=== PATIENT | female | born 1980 | race American Indian/Alaskan Native ===

== ENCOUNTER 2018-05-24 06:01 | Emergency (ER) | payer OTHER ==
--- NOTE | 2018-05-24 07:45 | Emergency Department Report ---
ED Rash HPI - HPI Chief Complaint: Extremity Injury, Upper Stated Complaint: RASH Time Seen by Provider: 05/24/18 06:24 Duration: at least 1 week of illness Location: Neck, Back, Upper Extremities Suspected Cause: Unknown Rash Symptoms: Yes Itching, Yes Malaise, No Facial Swelling, No Tongue/Oral Swelling, No Breathing Difficulties, No Choking Sensation, No Wheezing/Dyspnea, No Peeling, No Blistering, No Fever, No Lightheaded, No Myalgias Severity: mild Other History: Ms. Mosqueda is a pleasant 37 yo female with hx of HTN who presents with rash on left arm, upper neck, right shoulder and buttock region. She has had two course of antibiotics for infected mosquito bite and upper respiratory infection. Currently taking Augmentin. Mild pain with itching at the left arm predominately with 2 small blisters. She also had 2 areas of swelling posterior neck which have resolved. 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 S he has a PCP in her hometown [place], [place] ED Review of Systems ROS: Stated complaint: RASH Other details as noted in HPI Constitutional: malaise. denies: fever Skin: rash, lesions ED Past Medical Hx - Past Medical History Previous Medical History?: Yes Hx Hypertension: Yes - Surgical History Past Surgical History?: No - Social History Smoking Status: Never Smoker Substance Use Type: None - Medications Home Medications: Home Medications Medication Instructions Recorded Confirmed Last Taken Type Sulfamethoxazole/Trimethoprim 1 each PO BID 7 Days #14 tablet 05/24/18 Unknown Rx [Bactrim DS TAB] Rash Exam - Exam General: Vital signs noted. No distress. Alert and acting appropriately. HEENT: No Periorbital Edema, No Conjuctival Injection, No Chemosis, No Perioral Edema, No Tongue Edema, No Uvular Edema, No Compromised Airway, No Drooling Lungs: No Labored Respirations, No Use of Accessory Muscles Skin: Yes Erythema (left forearm edema with 2 small blisters) ED Course Vital Signs 05/24/18 06:13 Temperature 98.3 F Pulse Rate 104 H Respiratory 18 Rate Blood Pressure 147/97 O2 Sat by Pulse 100 Oximetry ED Medical Decision Making - Medical Decision Making left forearm rash with reported "welts" on right shoulder and back which have resolved. I suspect MRSA infection. I do not suspect drug reaction although it is possible. Rx: bactrim, given return precautions She will stop Augmentin Critical care attestation.: If time is entered above; I have spent that time in minutes in the direct care of this critically ill patient, excluding procedure time. ED Disposition Clinical Impression: Cellulitis Disposition: [id number] TO HOME OR SELFCARE Is pt being admited?: No Does the pt Need Aspirin: No Condition: Stable Instructions: Cellulitis (ED) Prescriptions: Sulfamethoxazole/Trimethoprim [Bactrim DS TAB] 1 each PO BID 7 Days #14 tablet Referrals: PRIMARY CARE, [Primary Care Provider] - [facility]
[2018-05-24 08:02] VITALS: BP 124/70
== END 2018-05-24 07:59 | disposition home or self-care (01) ==
LOC: ED 06:01
DX: L03.114 Cellulitis of left upper limb (principal); I10 Essential (primary) hypertension
CPT/HCPCS: 99282